=== PATIENT | male | born 1960 | race Caucasian/White ===

== ENCOUNTER 2020-07-15 12:50 | Emergency (ER) | payer OTHER ==
[~2020-07-15] VITALS: Ht 177.8 cm; Wt 114.0 kg
[2020-07-15] MEDS ORDERED: ACETAMINOPHEN 500 MG TABLET PO ONE (13:00)
--- NOTE | 2020-07-15 13:28 | NUR ---
Pt noted to be 88-91 percent on RA. Pt states that he thought he had sinus infection but was tested for Covid on Monday, came back positive . Pt states SOB when he coughs and noted on his pulse ox low when monitoring it at home. Pt states he has apnea and is on oxygen for same and bipap at night. after labs drawn xray at bedside.
[2020-07-15] MEDS ORDERED: ALBUTEROL HFA 90 MCG/SPRAY INH ONE (13:30)
[2020-07-15 13:38] LABS: BASOPHILS % (AUTO) 0 % (0-1); EOSINOPHILS % (AUTO) 0 % (1-7); LYMPHOCYTES % (AUTO) 8 % (22-44); MEAN CORPUSCULAR HEMOGLOBIN 29.1 pg (27.5-34.5); MEAN CORPUSCULAR HGB CONC 33.5 g/dL (33.2-36.2); MEAN PLATELET VOLUME 7.8 fL (7.4-10.4); MONOCYTES % (AUTO) 7 % (2-9); NEUTROPHILS % (AUTO) 85 % (42-75); RED BLOOD COUNT 5.73 x10^6/uL (4.38-5.82)
[2020-07-15] MEDS ORDERED: ACETAMINOPHEN 500 MG TABLET ONE (13:44)
[2020-07-15 13:50] LABS: MD NO; PLATELET COUNT 235 x10^3/uL (130-400)
[2020-07-15 13:51] LABS: ALANINE AMINOTRANSFERASE 43 U/L (12-78); ALBUMIN 3.3 g/dL (3.4-5.0); ANION GAP 6 mmol/L (5-15); CALCIUM 8.6 mg/dL (8.5-10.1); CHLORIDE 103 mmol/L (98-107)
[2020-07-15 13:56] LABS: D-DIMER (DIC) 0.33 ug/mlFEU (0.00-0.52); PROTIME 10.4 Seconds (9.6-11.5)
[2020-07-15 13:58] LABS: ALKALINE PHOSPHATASE 52 U/L (45-117); BILIRUBIN,TOTAL 0.6 mg/dL (0.2-1.0); TOTAL PROTEIN 8.1 g/dL (6.4-8.2)
--- NOTE | 2020-07-15 14:03 | NUR ---
BLOOD CULTURES DRAWN AT THIS TIME
--- NOTE | 2020-07-15 14:35 | NUR ---
ALBUTEROL ARRIVED FROM PHARMACY. TO GIVE TX WITH CHAMBER. RE-EVALUATING PT
[2020-07-15] MEDS ORDERED: methylPREDNISolone SOD SUCC 125 MG/2 ML ONE (14:51)
[2020-07-15] MEDS ORDERED: methylPREDNISolone SOD SUCC 125 MG/2 ML IVPush ONE (15:00)
--- NOTE | 2020-07-15 15:02 | NUR ---
THIS FLOAT RN AT BEDSIDE TO DC PT FOR PRIMARY RN, RANCHO. PT VERBALIZED UNDERSTANDING TO DC INSTRUCTIONS. AMBULATORY TO CHECKOUT C STEADY GAIT. VSS. PT MEDICATED C SOLUMEDROL PER EMAR BY RANCHO SANCHES PRIOR TO DC.
[2020-07-15 15:03] VITALS: BP 130/77
--- NOTE | 2020-07-15 15:18 | NUR ---
PT'S RA SPO2 DROPPING TO 89% WHILE DISCUSSING DC INSTRUCTIONS. DR. PEREIRA MADE AWARE. MD STATES THAT HE AND PATIENT HAD A DISCUSSION ABOUT THIS AND THAT PATIENT HAS A HOME SPO2 MONITOR AND OXYGEN CONCENTRATOR. PT VERBALIZED UNDERSTANDING FOR PERAMETERS DISCUSSED WITH MD TO RETURN TO THE HOSPITAL. AMBULATORY TO PARKING LOT W/ STEADY GAIT.
== END 2020-07-15 15:24 | disposition home or self-care (01) ==
LOC: ED 15:04
DX: J12.9 Viral pneumonia, unspecified (principal); R09.02 Hypoxemia; R00.0 Tachycardia, unspecified; J45.909 Unspecified asthma, uncomplicated
CPT/HCPCS: 36415; 71045; 80053; 82728; 83605; 83615; 84145; 85025; 85049; 85379; 85384; 85610; 85730; 86140; 87040; 93005; 99285

== ENCOUNTER 2021-03-19 08:39 | Outpatient (CLI) | payer OTHER | END 2021-03-19 23:59 | disposition home or self-care (01) | LOC: CFH 08:39 | PROVIDERS: ATTEND Registered Nurse | DX: R91.1 Solitary pulmonary nodule (principal); Z86.16 Personal history of COVID-19 | CPT/HCPCS: 71250 ==